=== PATIENT | female | born 1980 | race Caucasian/White ===

== ENCOUNTER → 2016-12-05 | Outpatient (CLI) | payer BC ==
[~2016-12-05] MED LIST: CLOB-65 EXT; DOCO1CAP6; IRON; MTR600X PO; OXYC-57 PO; PREN1TAB29; SYN25 PO
== END | disposition home or self-care (01) ==
LOC: C.PAPS 17:07
PROVIDERS: ATTEND Obstetrics & Gynecology
DX: Z01.419 Encounter for gynecological examination (general) (routine) without abnormal findings (principal)